=== PATIENT | male | born 1955 | race Caucasian/White ===

== ENCOUNTER 2017-09-07 13:17 | Emergency (ER) | payer BC ==
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
[2017-09-07 13:26] VITALS: BP 139/88
== END 2017-09-07 14:03 | disposition home or self-care (01) ==
LOC: CED 13:17
DX: S20.212D Contusion of left front wall of thorax, subsequent encounter (principal); V18.0XXD Pedal cycle driver injured in noncollision transport accident in nontraffic accident, subsequent encounter
CPT/HCPCS: 71045-PO